=== PATIENT | male | born 1965 | race Caucasian/White ===

== ENCOUNTER 2023-08-18 08:39 | Outpatient (RCR) | payer OTHER, SELFPAY | END 2023-08-18 23:59 | disposition home or self-care (01) | LOC: RPT 08:39 | PROVIDERS: ATTENDING PHYSICIAN Family Medicine | DX: M67.952 Unspecified disorder of synovium and tendon, left thigh (principal); Z73.6 Limitation of activities due to disability; R26.2 Difficulty in walking, not elsewhere classified; M62.81 Muscle weakness (generalized) | CPT/HCPCS: 97110; 97162 ==

== ENCOUNTER 2023-09-01 10:06 | Outpatient (RCR) | payer OTHER, SELFPAY | END 2023-09-01 23:59 | disposition home or self-care (01) | LOC: RPT 10:06 | PROVIDERS: ATTENDING PHYSICIAN Family Medicine | DX: M67.952 Unspecified disorder of synovium and tendon, left thigh (principal); Z73.6 Limitation of activities due to disability; R26.2 Difficulty in walking, not elsewhere classified; M62.81 Muscle weakness (generalized) | CPT/HCPCS: 97110 ==

== ENCOUNTER 2023-11-04 15:21 | Outpatient (RCR) | payer OTHER, SELFPAY | END 2023-11-04 23:59 | disposition home or self-care (01) | LOC: RPT 15:21 | PROVIDERS: ATTENDING PHYSICIAN Family Medicine | DX: M67.952 Unspecified disorder of synovium and tendon, left thigh (principal); Z73.6 Limitation of activities due to disability; R26.2 Difficulty in walking, not elsewhere classified; M62.81 Muscle weakness (generalized) | CPT/HCPCS: 97110 ==

== ENCOUNTER → 2024-01-05 10:12 | Outpatient (REF) | payer OTHER, SELFPAY | LOC: RAD 10:12 | PROVIDERS: ATTENDING PHYSICIAN Family Medicine | DX: M76.62 Achilles tendinitis, left leg (principal) | CPT/HCPCS: 76882 ==

== ENCOUNTER 2024-03-01 06:58 | Outpatient (RCR) | payer OTHER, SELFPAY | END 2024-03-01 23:59 | disposition home or self-care (01) | LOC: RPT 06:58 | PROVIDERS: ATTENDING PHYSICIAN Family Medicine | DX: M67.88 Other specified disorders of synovium and tendon, other site (principal); M54.2 Cervicalgia; Z73.6 Limitation of activities due to disability | CPT/HCPCS: 97110; 97162 ==

== ENCOUNTER 2024-04-14 11:20 | Outpatient (RCR) | payer OTHER, SELFPAY | END 2024-04-14 23:59 | disposition home or self-care (01) | LOC: RPT 11:20 | PROVIDERS: ATTENDING PHYSICIAN Family Medicine | DX: M67.88 Other specified disorders of synovium and tendon, other site (principal); M54.2 Cervicalgia; Z73.6 Limitation of activities due to disability | CPT/HCPCS: 97110 ==

== ENCOUNTER → 2024-06-14 08:24 | Outpatient (REF) | payer OTHER, SELFPAY | LOC: MRI 3T 08:24 | PROVIDERS: ATTENDING PHYSICIAN Specialist; FAMILY PHYSICIAN Family Medicine | DX: R97.20 Elevated prostate specific antigen [PSA] (principal) | CPT/HCPCS: 72197; A9575 ==

== ENCOUNTER 2025-02-28 09:53 | Outpatient (RCR) | payer OTHER, SELFPAY | END 2025-03-15 06:11 | disposition home or self-care (01) | LOC: RPT 09:53 | PROVIDERS: ATTENDING PHYSICIAN Family Medicine | DX: M79.671 Pain in right foot (principal); R26.2 Difficulty in walking, not elsewhere classified; X58.XXXD Exposure to other specified factors, subsequent encounter | CPT/HCPCS: 97110; 97112; 97162; 97535 ==